=== PATIENT | male | born 1980 | race Caucasian/White ===

== ENCOUNTER 2022-06-03 02:43 | Emergency (ER) | payer OTHER ==
[~2022-06-03] VITALS: Ht 175.3 cm; Wt 68.2 kg
[2022-06-03] MEDS ORDERED: AMOXICILLIN500 MG PO (03:36)
== END 2022-06-03 03:51 | disposition home or self-care (01) ==
LOC: ED 02:43
DX: U07.1 COVID-19 (principal); H66.92 Otitis media, unspecified, left ear
CPT/HCPCS: 99283; A9270